=== PATIENT | male | born 1980 | race Caucasian/White ===

== ENCOUNTER 2019-09-26 17:33 | Emergency (ER) | payer OTHER ==
[~2019-09-26] VITALS: Ht 180.3 cm; Wt 93.0 kg
[2019-09-26 17:35] VITALS: BP 158/101
[2019-09-26] MEDS ORDERED: DICL100G30 TOP (17:56)
== END 2019-09-26 18:27 | disposition home or self-care (01) ==
LOC: ER 17:34
DX: M72.2 Plantar fascial fibromatosis (principal); Z88.5 Allergy status to narcotic agent; Z79.899 Other long term (current) drug therapy
CPT/HCPCS: 73630; 99283

== ENCOUNTER → 2020-05-06 | Emergency (ER) | payer OTHER ==
[~2020-05-06] VITALS: Ht 180.3 cm; Wt 94.5 kg
[~2020-05-06] MED LIST: CYCL-1 PO; DICL100G30 TOP; OXYC-145 PO; ketorolac trometh. 30mg/ml inj. IM ONE; ondansetron 4mg rapidly disintigrating tab PO ONE; oxyCODONE/APAP 10/325mg tablet PO ONE
[2020-05-06 11:15] VITALS: BP 117/75
== END | disposition home or self-care (01) ==
LOC: ER 08:12
DX: S32.009A Unspecified fracture of unspecified lumbar vertebra, initial encounter for closed fracture (principal); M54.5 Low back pain; R11.0 Nausea; Z90.89 Acquired absence of other organs; Z88.5 Allergy status to narcotic agent; Z79.899 Other long term (current) drug therapy; W14.XXXA Fall from tree, initial encounter; Y93.89 Activity, other specified; Y92.89 Other specified places as the place of occurrence of the external cause; Y99.8 Other external cause status
CPT/HCPCS: 71046; 72100; 72131; 96372; 99284; J1885

== ENCOUNTER 2021-05-29 12:25 | Emergency (ER) | payer OTHER ==
[~2021-05-29] VITALS: Ht 182.9 cm; Wt 90.9 kg
[~2021-05-29 12:25] MED LIST changes: -ketorolac trometh. 30mg/ml inj. IM ONE; -ondansetron 4mg rapidly disintigrating tab PO ONE; -oxyCODONE/APAP 10/325mg tablet PO ONE
[2021-05-29] MEDS ORDERED: propranolol 10mg tablet PO ONE (12:45)
[2021-05-29 12:47] VITALS: BP 150/108
== END 2021-05-29 13:08 | disposition home or self-care (01) ==
LOC: EEVIPCON 12:25 → ER 12:25
DX: R07.89 Other chest pain (principal); F41.9 Anxiety disorder, unspecified; I10 Essential (primary) hypertension; R51.9 Headache, unspecified; Z90.89 Acquired absence of other organs; Z88.5 Allergy status to narcotic agent; Z79.899 Other long term (current) drug therapy
CPT/HCPCS: 93005; 99283

== ENCOUNTER 2023-09-21 08:15 | Emergency (ER) | payer OTHER ==
[~2023-09-21] VITALS: Ht 182.9 cm; Wt 88.0 kg
[~2023-09-21 08:15] MED LIST changes: -DICL100G30 TOP; +DICL100G59 TOP
[2023-09-21 08:17] VITALS: BP 158/107; PULSE 82; TEMP 97.9; O2SAT 98
[2023-09-21 09:15] VITALS: RESP 18
[2023-09-21] MEDS: ketorolac tromethamine 15mg/ml inj. IM ONE (09:15)
[2023-09-21] MEDS ORDERED: CYCL-1 PO (09:19)
[2023-09-21] MEDS: dexamethasone sod phosphate 10mg/ml inj PO STA (09:39)
== END 2023-09-21 09:42 | disposition home or self-care (01) ==
LOC: ER 08:15
DX: G62.9 Polyneuropathy, unspecified (principal); M25.512 Pain in left shoulder; R20.0 Anesthesia of skin; M25.511 Pain in right shoulder; I10 Essential (primary) hypertension; Z88.8 Allergy status to other drugs, medicaments and biological substances; Z79.899 Other long term (current) drug therapy; Z90.49 Acquired absence of other specified parts of digestive tract
CPT/HCPCS: 96372; 99283; J1100; J1885

== ENCOUNTER 2023-11-23 14:15 | Emergency (ER) | payer OTHER ==
[~2023-11-23] VITALS: Ht 175.3 cm; Wt 80.2 kg
[2023-11-23 15:09] LABS: BASOPHILS % (AUTO) 0.7 % (0-1); EOSINOPHILS # (AUTO) 0.1 X10'3 (0-0.9); EOSINOPHILS % (AUTO) 1.6 % (0-6); HEMATOCRIT 43.3 % (42.0-52.0); HEMOGLOBIN 14.8 g/dl (14.0-17.9); LYMPHOCYTES # (AUTO) 1.2 X10'3 (1.1-4.8); LYMPHOCYTES % (AUTO) 21.4 % (21-51); MEAN CORPUSCULAR HEMOGLOBIN 32.1 PG (27.0-31.0); MEAN CORPUSCULAR HGB CONC 34.3 g/dL (33.0-36.5); MEAN CORPUSCULAR VOLUME 93.8 FL (78-98); MONOCYTES # (AUTO) 0.6 X10'3 (0-0.9); MONOCYTES % (AUTO) 9.6 % (2-12); NEUTROPHILS # (AUTO) 3.9 X10'3 (1.8-7.7); NEUTROPHILS % (AUTO) 66.7 % (42-75); PLATELET COUNT 222 X10'3 (140-440); RED BLOOD COUNT 4.61 X10'6 (4.70-6.10); RED CELL DISTRIBUTION WIDTH 12.4 % (11.5-14.5); WHITE BLOOD COUNT 5.8 X10'3 (4.5-11.0)
[2023-11-23 15:11] LABS: BILIRUBIN,URINE NEGATIVE (Neg); CLARITY,URINE SLIGHTLY CLOUDY (Clear); COLOR,URINE YELLOW (Yellow); GLUCOSE, URINE NEGATIVE (Neg); KETONES,URINE NEGATIVE (Neg); LEUKOCYTE ESTERASE ,URINE NEGATIVE (Neg); NITRITES, URINE NEGATIVE (Neg); OCCULT BLOOD,URINE MODERATE (Neg); PROTEIN,URINE NEGATIVE (Neg)
[2023-11-23 15:22] LABS: URINE AMPHETAMINE SCREEN NEGATIVE (Neg); URINE BARBITUATE SCREEN NEGATIVE (Neg); URINE BENZODIAZEPINES SCREEN NEGATIVE (Neg); URINE CANNABINOID SCREEN NEGATIVE (Neg); URINE COCAINE SCREEN NEGATIVE (Neg); URINE METHADONE SCREEN NEGATIVE (Neg); URINE OPIATE SCREEN NEGATIVE (Neg); URINE PHENCYCLIDINE SCREEN NEGATIVE (Neg)
[2023-11-23 15:23] LABS: APTT 32 SECONDS (22-32); INR 1.1 INR; PROTHROMBIN TIME 11.7 SECONDS (9.0-12.0)
[2023-11-23 15:24] LABS: ALANINE AMINOTRANSFERASE 27 U/L (12-78); ALBUMIN 4.1 G/DL (3.4-5.0); ALBUMIN/GLOBULIN RATIO 1.5 (1.1-1.5); ALKALINE PHOSPHATASE 44 IU/L (46-116); ANION GAP 8 (8-16); ASPARTATE AMINO TRANSFERASE 14 U/L (10-37); BILIRUBIN,TOTAL 0.8 MG/DL (0.1-1.0); BLOOD UREA NITROGEN 17 MG/DL (7-18); BUN/CREATININE RATIO 15.6 (10.0-20.0); CALCIUM 9.2 MG/DL (8.5-10.1); CHLORIDE 108 MMOL/L (99-107); CREATININE 1.09 MG/DL (0.60-1.10); GLUCOSE 114 MG/DL (70-104); SODIUM 142 MMOL/L (135-145); TOTAL CARBON DIOXIDE 25.7 MMOL/L (24-32); TOTAL PROTEIN 6.8 G/DL (6.4-8.2); eCRCL 86 ML/MIN; eGFR 73 ML/MIN
[2023-11-23 15:27] LABS: UA COLLECTION TYPE CLN CATCH MIDSTREAM
[2023-11-23 15:29] LABS: MUCUS STRANDS FEW /LPF (Neg)
[2023-11-23 15:30] LABS: BACTERIA,URINE FEW /HPF (Neg); SQUAMOUS EPITHELIAL CELL,UR FEW /LPF (FEW); WBC,URINE 0-4 /HPF (0-4)
[2023-11-23 15:41] LABS: FREE T4 (FREE THYROXINE) 0.92 NG/DL (0.73-1.40); MAGNESIUM 1.9 MG/DL (1.5-2.4); PHOSPHORUS 3.2 MG/DL (2.3-4.5); PRO BRAIN NATRIURETIC PEPTIDE 159 PG/ML (0-125); THYROID STIMULATING HORMONE 0.66 ulU/ml (0.34-4.50)
[2023-11-23 15:46] LABS: C-REACTIVE PROTEIN 0.05 MG/DL (0.0-0.5)
[2023-11-23] MEDS ORDERED: GABA300C PO (16:30)
[2023-11-23 16:37] VITALS: BP 128/97; PULSE 68; RESP 16; TEMP 98.2; O2SAT 97
== END 2023-11-23 16:38 | disposition home or self-care (01) ==
LOC: ER 14:16
DX: G25.0 Essential tremor (principal); F13.239 Sedative, hypnotic or anxiolytic dependence with withdrawal, unspecified; I10 Essential (primary) hypertension; R79.1 Abnormal coagulation profile; Z88.5 Allergy status to narcotic agent; Z79.899 Other long term (current) drug therapy; Z79.1 Long term (current) use of non-steroidal anti-inflammatories (NSAID); Z98.890 Other specified postprocedural states
CPT/HCPCS: 36415; 71045; 80053; 80305; 81001; 83735; 83880; 84100; 84439; 84443; 84484; 85025; 85610; 85651; 85730; 86140; 93005; 99285

== ENCOUNTER 2024-04-18 09:18 | Outpatient (CLI) | payer OTHER ==
[~2024-04-18 09:18] MED LIST changes: +GABA300C PO
== END 2024-04-18 23:59 | disposition home or self-care (01) ==
LOC: RAD 09:18
PROVIDERS: ATTEND Psychiatry & Neurology Neurology
DX: R40.4 Transient alteration of awareness (principal)
CPT/HCPCS: 95816